=== PATIENT | male | born 1940 | race Caucasian/White ===

== ENCOUNTER 2019-02-13 20:23 | Inpatient (IN) | payer MEDICARE, OTHER ==
[~2019-02-13] VITALS: Ht 165.1 cm; Wt 78.5 kg
[~2019-02-13 20:23] MED LIST: ASPIRIN PO; PLAVIX PO
--- NOTE | 2019-02-13 20:55 | NUR ---
PT WAS SEATED ON THE [facility] ACC BY DAUGHTER CALM NAD AND COMPLIANT ABLE TO SPEAK COMPLETE AND CLEAR SENTENCES IN [place] DENIES EMESIS, +LWFEVER AT 99.4F DENIES RECENT TRAVELS DENIES DIARRHEA ABLE TO TOLERATE IVF INSERTION TO L AC G18
[2019-02-13 21:14] LABS: BASOPHILS % (AUTO) 0.4 % (0.0-2.0); EOSINOPHILS # (AUTO) 0.1 K/uL (0.0-0.7); EOSINOPHILS % (AUTO) 1.3 % (0.0-7.0); HEMATOCRIT 43.4 % (36.7-47.1); HEMOGLOBIN 14.9 g/dL (12.5-16.3); LYMPHOCYTES # (AUTO) 1.3 K/uL (20.0-40.0); LYMPHOCYTES % (AUTO) 16.2 % (20.5-51.5); MEAN CORPUSCULAR HEMOGLOBIN 29.4 uug (23.8-33.4); MEAN CORPUSCULAR HGB CONC 34 g/dL (32.5-36.3); MEAN CORPUSCULAR VOLUME 85.8 fL (73.0-96.2); MONOCYTES # (AUTO) 0.7 K/uL (2.0-10.0); NEUTROPHILS # (AUTO) 6.1 K/uL (1.8-8.9); NEUTROPHILS % (AUTO) 74.1 % (38.5-71.5); PLATELET COUNT (AUTO) 193 K/uL (152-348); RED BLOOD CELL COUNT(AUTO) 5.06 MIL/uL (4.06-5.63); WHITE BLOOD COUNT (AUTO) 8.2 K/uL (3.6-10.2)
[2019-02-13 21:17] LABS: BILIRUBIN,DIRECT 0.2 mg/dL (0.0-0.2); BILIRUBIN,TOTAL 0.7 mg/dL (0.2-1.0); POTASSIUM 3.7 mmol/L (3.5-5.1); TOTAL PROTEIN, SERUM 7.1 g/dL (6.4-8.2)
--- NOTE | 2019-02-13 21:17 | NUR ---
MD AT BEDSIDE FOR HX AND PHYSICAL
[2019-02-13] MEDS ORDERED: FENTANYL CITRATE 100 MCG/2 ML AMPUL IV ONE (21:30)
[2019-02-13] MEDS ORDERED: IV NS 1000 ML 1,000 ML IV ONE (21:30)
[2019-02-13] MEDS ORDERED: ONDANSETRON 4 MG/2 ML VIAL IV ONE (21:30)
--- NOTE | 2019-02-13 21:33 | NUR ---
[facility]
--- NOTE | 2019-02-13 21:59 | NUR ---
DR TREJO (GEN SURGERY) ON THE PHONE W/ ERMD DR HUSAIN
[2019-02-13] MEDS ORDERED: PIPERACILLIN SODIUM/TAZOBACTAM 4.5 G in IV DEXTROSE 5% 50 ML IV ONE (22:15)
[2019-02-13] MEDS ORDERED: PIPERACILLIN/TAZO 4.5 GM VIAL IV ONE (22:15)
[2019-02-13 22:16] LABS: *BILIRUBIN,URIN NEGATIVE (NEGATIVE); *BLOOD, URINE NEGATIVE (NEGATIVE); *CLARITY,URINE CLEAR (CLEAR); *COLOR,URINE YELLOW (YELLOW); *KETONES,URINE NEGATIVE (NEGATIVE); *UROBILINOGEN,URINE 0.2 E.U./dl (NORMAL); LEUKOCYTE ESTERASE ,URINE NEGATIVE (NEGATIVE); NITRITE, URINE NEGATIVE (NEGATIVE); PH,URINE 7.5 (5.0-8.0); UGLUCOSE NEGATIVE (NEGATIVE)
[2019-02-13] MEDS ORDERED: ROCURONIUM BROMIDE 50 MG/5 ML VIAL ONE (22:46)
[2019-02-13] MEDS ORDERED: SUCCINYLCHOLINE CHLORIDE 200 MG/10 ML VIAL ONE (22:46)
--- NOTE | 2019-02-13 22:47 | NUR ---
DR TREJO AT BEDSIDE FOR EXPLANATION OF SURGERY
[2019-02-13] MEDS ORDERED: BACITRACIN 50,000 UNITS VIAL ONE (22:49)
[2019-02-13] MEDS ORDERED: POLYMYXIN B SULFATE 500,000 UNITS VIAL ONE (22:49)
[2019-02-13] MEDS ORDERED: BUPIVACAINE/EPI PF 0.5% 10 ML VIAL ONE (22:50)
[2019-02-13] MEDS ORDERED: LIDOCAINE HCL 1% 20 ML VIAL ONE (22:50)
[2019-02-13] MEDS ORDERED: BUPIVACAINE/EPI PF 0.25% 30 ML VIAL ONE (22:51)
--- NOTE | 2019-02-13 23:13 | NUR ---
DR ALDANA ON THE PHONE W/ ERMCamelia HUSAIN PT WILL BE INPATIENT SURGERY UNDER DR NEIL ESCALONA PNEUMO PERITONEUM/ PERFORATED VISCUS/ ABD PAIN KATYA AT BED SIDE FOR HX AND PHYSICAL
--- NOTE | 2019-02-13 23:16 | NUR ---
PT PREOP CHECKLIST FINALIZED W/ OR NURSE HAND OFF AND SBAR GIVEN TO FRANNY LAST ORAL INTAKE WAS 02/13/19 AT 1800 PT HAS SENSITIVITY TO MORPHINE PER DAUGHTER(ENDORSED)
[2019-02-13] MEDS ORDERED: IV NS 1000 ML 1,000 ML IV PRN (23:20)
--- NOTE | 2019-02-13 23:20 | NUR ---
PT BROUGHT TO OR ACC BY TO OR RNS ALL BELONGINGS W/ PT BELONGINGS LIST SIGNED SIDERAILSX2 UP BED AT LOWEST POSITION
[2019-02-13] MEDS ORDERED: MORPHINE SULFATE 2 MG/1 ML DISP.SYRIN IV PRN (23:30)
[2019-02-13] MEDS ORDERED: Z GUARD REMEDY PASTE 57 GM TUBE TOP PRN (23:30)
[2019-02-13] MEDS ORDERED: ACETAMINOPHEN 325 MG TABLET PO PRN (23:30)
[2019-02-13] MEDS ORDERED: HYDROCODONE/APAP 5-325MG TABLET PO PRN (23:30)
[2019-02-13] MEDS ORDERED: MAGNESIUM HYDROXIDE 30 ML LIQUID UDC PO PRN (23:30)
[2019-02-14] VITALS (10 sets, daily range): BP systolic 113–166; BP diastolic 61–79
[2019-02-14] MEDS ORDERED: ONDANSETRON 4 MG/2 ML VIAL IV ONE (01:18)
[2019-02-14] MEDS ORDERED: NEOSTIGMINE METHYLSULFATE 10 MG/10 ML VIAL IM ONE (01:18)
[2019-02-14] MEDS ORDERED: IRR STERIL WATER FOR IRR 1000 ML BOTTLE IR ONE (01:18)
[2019-02-14] MEDS ORDERED: GLYCOPYRROLATE 0.2 MG/ML VIAL IJ ONE (01:18)
[2019-02-14] MEDS ORDERED: SUCCINYLCHOLINE CHLORIDE 200 MG/10 ML VIAL IV ONE (01:18)
[2019-02-14] MEDS ORDERED: PROPOFOL 200 MG/20 ML BOTTLE IV ONE (01:18)
[2019-02-14] MEDS ORDERED: IV LACTATED RINGERS SOLUTION 1,000 ML BAG IV ONE (01:18)
[2019-02-14] MEDS ORDERED: MEPERIDINE 25 MG/1 ML DISP.SYRIN ONE (01:22)
[2019-02-14] MEDS ORDERED: IV D5W-0.45% NS +20 KCL 1,000 ML IV ONE (01:46)
--- NOTE | 2019-02-14 02:13 | NUR ---
RECEIVED PT FROM SURGERY/PACU S/P EXPLORATORY LAPAROTOMY, SIGMOID COLON RESECTIO, COLOSTOMY & LYSIS OF ADHESION. DROWSY BUT AROUSABLE, SPEAKS FARSI UNDERSTAND LITTLE ENLISH. FAMILY AT BEDSIDE. ABD. DRSG INTACT & DRY. COLOSTOMY BAG ON R SIDE OF ABD. W/ SEROSANGINOUS DRAINAGE. IVF ON LEFT AC , PATENT. PLACED ON O2 @ 2LNC W/ O2 SAT OF 98%. DELANEY CATH IN PLACE W/ BLOOD TINGED URINE. C-SCOPE SR.
[2019-02-14] MEDS: ONDANSETRON 4 MG/2 ML VIAL IV PRN (02:36)
[2019-02-14] MEDS: HYDROMORPHONE 1 MG/1 ML DISP.SYRIN IV PRN ×9 (02:43→23:13)
[2019-02-14] MEDS ORDERED: METRONIDAZOLE 500 MG/NS 100ML 100 ML IV ONE (02:43)
--- NOTE | 2019-02-14 02:43 | NUR ---
MEDICATED W/ DILAUDID 0.5MG IVP FOR SURGICAL PAIN SCALE 10/10.
[2019-02-14] MEDS: METRONIDAZOLE 500 MG/NS 100ML 500 MG in PREMIXED 1 EACH IV SCH ×3 (02:58→19:49)
[2019-02-14] MEDS: POTASSIUM CHLORIDE 20 MEQ in IV D5 1/2 NS 1000 ML 1,000 ML IV PRN ×3 (03:46→23:09)
--- NOTE | 2019-02-14 04:00 | NUR ---
encouraged deep breathing & cough.
--- NOTE | 2019-02-14 05:19 | NUR ---
MEDICATED W/ DILAUDID 0,5MG IVP FOR SURGICAL PAIN SCALE 10/10. V/S STABLE.
[2019-02-14 05:29] LABS: BASOPHILS % (AUTO) 0.1 % (0.0-2.0); HEMATOCRIT 43.9 % (36.7-47.1); HEMOGLOBIN 14.7 g/dL (12.5-16.3); LYMPHOCYTES # (AUTO) 0.6 K/uL (20.0-40.0); MEAN CORPUSCULAR HEMOGLOBIN 29.8 uug (23.8-33.4); MEAN CORPUSCULAR HGB CONC 34 g/dL (32.5-36.3); MEAN CORPUSCULAR VOLUME 88.8 fL (73.0-96.2); MONOCYTES # (AUTO) 0.3 K/uL (2.0-10.0); MONOCYTES % (AUTO) 3.5 % (0.0-11.0); NEUTROPHILS # (AUTO) 8.4 K/uL (1.8-8.9); NEUTROPHILS % (AUTO) 90.4 % (38.5-71.5); PLATELET COUNT (AUTO) 169 K/uL (152-348); RED BLOOD CELL COUNT(AUTO) 4.94 MIL/uL (4.06-5.63); WHITE BLOOD COUNT (AUTO) 9.3 K/uL (3.6-10.2)
[2019-02-14 05:36] LABS: CARBON DIOXIDE 28 mmol/L (21-32); CHLORIDE 103 mmol/L (98-107); CHOLESTEROL 135 mg/dL (<200); CREATININE 1.4 mg/dL (0.6-1.3); GLUCOSE 136 mg/dL (74-106); HDL CHOLESTEROL 43 mg/dL (40-60); MAGNESIUM 1.8 mg/dL (1.8-2.4); PHOSPHOROUS 3.1 mg/dL (2.5-4.9); POTASSIUM 4.1 mmol/L (3.5-5.1); TRIGLYCERIDES 28 MG/DL (30-150); UREA NITROGEN, BLOOD 12 mg/dL (7-18)
--- NOTE | 2019-02-14 05:40 | NUR ---
REPOSITIONED PT ON HIS BACK W/ HOB ELEVATED.
[2019-02-14] MEDS ORDERED: PIPERACILLIN SODIUM/TAZOBACTAM 3.375 G in IV DEXTROSE 5% 50 ML IV SCH (06:00)
[2019-02-14] MEDS ORDERED: MORPHINE SULFATE 2 MG/1 ML DISP.SYRIN IV PRN (07:30)
[2019-02-14] MEDS ORDERED: CEFAZOLIN 1 G in IV DEXTROSE 5% 50 ML IV SCH ×2 (08:00→16:00)
[2019-02-14] MEDS: PANTOPRAZOLE SODIUM 40 MG VIAL IV SCH (08:01)
--- NOTE | 2019-02-14 10:08 | NUR ---
Dr. Robb at the bedside with family. Full report given. New orders received. Pt to advance to clear liquid diet and have physical therapy.
--- NOTE | 2019-02-14 11:57 | NUR ---
Physical therapy here to see pt for eval.
--- NOTE | 2019-02-14 13:20 | NUR ---
Dr. Alexander here to see pt. Full report given. New orders received. MD talavera to downgrade pt to telemetry status.
[2019-02-14] MEDS: CEFTRIAXONE 1 G in IV DEXTROSE 5% 50 ML IV SCH (15:51)
--- NOTE | 2019-02-14 19:15 | NUR ---
Transferred pt to room 320-T and full SBAR report given to band leader RN Traci at the bedside. Pt stable and nad noted upon leaving the unit. VSS wnl.
--- NOTE | 2019-02-14 19:30 | NUR ---
RECEIVED PATIENT FROM ICU VIA GURNEY. PATIENT ACCOMPANIED BY SON CHAS. PATIENT AAOX4. IN NO ACUTE DISTRESS. ON O2 AT 3LPM VIA NC IN PLACE. O2 SAT AT 94%. NSR ON TELE AT 85/MIN. IV SITE ON LEFT AC INTACT AND PATENT. IVF INFUSING. COLOSTOMY INTACT AND WITH SEROSANGUINEOUS DRAINAGE. DELANEY CATHETER INTACT AND DRAINING VIA GRAVITY. ENCOURAGE TO DO INCENTIVE SPIROMETER AND PATIENT VERBALIZED UNDERSTANDING. SAFETY MEASURE INITIATED AND CALL CABRERA WITHIN REACH.
[2019-02-14] MEDS: ENOXAPARIN SODIUM 40 MG/0.4 ML DISP.SYRIN SQ SCH (21:34)
[2019-02-15] VITALS: BP 117/59
[2019-02-15] MEDS: METRONIDAZOLE 500 MG/NS 100ML 500 MG in PREMIXED 1 EACH IV SCH ×3 (02:04→19:10)
[2019-02-15 05:25] VITALS: BP 127/62
[2019-02-15] MEDS: HYDROMORPHONE 1 MG/1 ML DISP.SYRIN IV PRN ×3 (06:13→17:02)
--- NOTE | 2019-02-15 06:20 | NUR ---
PATIENT AAOX4. IN NO ACUTE DISTRESS. O2 AT 3LPM VIA NC IN PLACE. O2 SAT AT 98%. NSR ON TELE AT 87/MIN. IV SITE ON LEFT AC INTACT AND PATENT. IVF INFUSING. NO ADVERSE REACTION NOTED FROM IV ABX. DILAUDID 0.5MG IV PRN GIVEN FOR COMPLAIN OF ABDOMINAL PAIN AND EFFECTIVE. COLOSTOMY INTACT AND PATENT. DELANEY CATHETER INTACT AND DRAINING VIA GRAVITY. SAFETY MEASURE MAINTAINED AND CALL CABRERA WITHIN REACH.
[2019-02-15 06:54] LABS: BASOPHILS % (AUTO) 0.1 % (0.0-2.0); EOSINOPHILS % (AUTO) 0.3 % (0.0-7.0); HEMATOCRIT 40.3 % (36.7-47.1); HEMOGLOBIN 13.7 g/dL (12.5-16.3); LYMPHOCYTES # (AUTO) 0.8 K/uL (20.0-40.0); LYMPHOCYTES % (AUTO) 9.8 % (20.5-51.5); MEAN CORPUSCULAR HEMOGLOBIN 30.1 uug (23.8-33.4); MEAN CORPUSCULAR HGB CONC 34 g/dL (32.5-36.3); MEAN CORPUSCULAR VOLUME 88.8 fL (73.0-96.2); MONOCYTES # (AUTO) 0.6 K/uL (2.0-10.0); MONOCYTES % (AUTO) 7.6 % (0.0-11.0); NEUTROPHILS # (AUTO) 6.4 K/uL (1.8-8.9); NEUTROPHILS % (AUTO) 82.2 % (38.5-71.5); PLATELET COUNT (AUTO) 158 K/uL (152-348); RED BLOOD CELL COUNT(AUTO) 4.53 MIL/uL (4.06-5.63); WHITE BLOOD COUNT (AUTO) 7.8 K/uL (3.6-10.2)
[2019-02-15 07:05] LABS: BILIRUBIN,TOTAL 0.8 mg/dL (0.2-1.0); CREATININE 1.2 mg/dL (0.6-1.3); MAGNESIUM 2.2 mg/dL (1.8-2.4); PHOSPHOROUS 2.2 mg/dL (2.5-4.9); POTASSIUM 4.2 mmol/L (3.5-5.1); TOTAL PROTEIN, SERUM 5.9 g/dL (6.4-8.2)
--- NOTE | 2019-02-15 07:28 | NUR ---
Awake, alert, oriented x 4, Farsi speaking, on moderate high back rest. IVF infusing. CXR done
[2019-02-15] MEDS: POTASSIUM CHLORIDE 20 MEQ in IV D5 1/2 NS 1000 ML 1,000 ML IV PRN ×2 (08:39→21:42)
[2019-02-15] MEDS: PANTOPRAZOLE SODIUM 40 MG VIAL IV SCH (08:40)
[2019-02-15] MEDS ORDERED: SODIUM PHOSPHATE MM 5 MM in IV DEXTROSE 5% 100 ML IV ONE (09:00)
[2019-02-15] MEDS ORDERED: ASPI-605 PO (09:22)
[2019-02-15] MEDS ORDERED: CLOP75TA15 PO (09:22)
--- NOTE | 2019-02-15 10:44 | NUR ---
Assisted out of bed by PT, ambulated in the hallway then sitting on the chair, tolerated. Assisted back to bed, repositioned comfortably. Daughter at bedside
[2019-02-15 11:52] VITALS: BP 143/72
[2019-02-15] MEDS: ONDANSETRON 4 MG/2 ML VIAL IV PRN ×3 (12:30→21:35)
--- NOTE | 2019-02-15 12:30 | NUR ---
with nausea and abdominal pain. PRN Dilaudid and Zofran IV given with relief
--- NOTE | 2019-02-15 15:00 | NUR ---
Assisted out of bed, sitting on the chair, daughter at bedside.
[2019-02-15 15:21] VITALS: BP 125/60
[2019-02-15] MEDS: CEFTRIAXONE 1 G in IV DEXTROSE 5% 50 ML IV SCH (15:29)
--- NOTE | 2019-02-15 17:05 | NUR ---
nauseated with abdominal pain. Zofran changed to Q4 hours PRN, given with Dilaudid with relief
--- NOTE | 2019-02-15 18:30 | NUR ---
Spoke with Dr. Robb, informed of patient's condition through out the shift. Reglan IV ordered
[2019-02-15] MEDS: METOCLOPRAMIDE HCL 10 MG/2 ML VIAL IV SCH (18:35)
--- NOTE | 2019-02-15 19:40 | NUR ---
PATIENT ALERT ORIENTED, NO SOB NO CHEST PAIN. PATIENT ON MONITOR NORMAL SINUS RHYTHM AT THIS TIME. PATIENT HAS NO COMPLAIN OF PAIN AT THIS TIME, PATIENT COLOSTOMY DRAINING WITH DARK COLOR BM THIN CONSISTENCY. PATIENT ENCOURAGE TO DO DEEP BREATHING, ENCOURAGE TO USE IC. ABLE TO FOLLOW TEACHING. PATIENT ON OXYGEN, OXYGEN SAT WNL, CONT TO MONITOR.
[2019-02-15 20:15] VITALS: BP 132/66
[2019-02-15] MEDS: ENOXAPARIN SODIUM 40 MG/0.4 ML DISP.SYRIN SQ SCH (21:37)
[2019-02-16 00:25] VITALS: BP 154/69
[2019-02-16] MEDS: HYDROMORPHONE 1 MG/1 ML DISP.SYRIN IV PRN (00:33)
[2019-02-16] MEDS: METOCLOPRAMIDE HCL 10 MG/2 ML VIAL IV SCH ×4 (00:33→17:33)
[2019-02-16] MEDS: METRONIDAZOLE 500 MG/NS 100ML 500 MG in PREMIXED 1 EACH IV SCH ×3 (02:00→17:34)
[2019-02-16 04:22] VITALS: BP 146/68
[2019-02-16] MEDS: POTASSIUM CHLORIDE 20 MEQ in IV D5 1/2 NS 1000 ML 1,000 ML IV PRN ×2 (05:19→14:29)
[2019-02-16 06:23] LABS: BASOPHILS % (AUTO) 0.2 % (0.0-2.0); EOSINOPHILS # (AUTO) 0.1 K/uL (0.0-0.7); EOSINOPHILS % (AUTO) 1.3 % (0.0-7.0); HEMATOCRIT 39.8 % (36.7-47.1); HEMOGLOBIN 13.8 g/dL (12.5-16.3); LYMPHOCYTES # (AUTO) 0.8 K/uL (20.0-40.0); LYMPHOCYTES % (AUTO) 10.2 % (20.5-51.5); MEAN CORPUSCULAR HEMOGLOBIN 30.4 uug (23.8-33.4); MEAN CORPUSCULAR HGB CONC 35 g/dL (32.5-36.3); MEAN CORPUSCULAR VOLUME 87.7 fL (73.0-96.2); MONOCYTES # (AUTO) 0.6 K/uL (2.0-10.0); MONOCYTES % (AUTO) 7.8 % (0.0-11.0); NEUTROPHILS # (AUTO) 6.6 K/uL (1.8-8.9); NEUTROPHILS % (AUTO) 80.5 % (38.5-71.5); PLATELET COUNT (AUTO) 186 K/uL (152-348); RED BLOOD CELL COUNT(AUTO) 4.54 MIL/uL (4.06-5.63); WHITE BLOOD COUNT (AUTO) 8.2 K/uL (3.6-10.2)
--- NOTE | 2019-02-16 06:26 | NUR ---
PATIENT ALERT ORIENTED, NO SOB NO CHEST PAIN. PATIENT TELE MONITOR SINUS RYTHM AT THIS TIME. PATIENT ABDOMEN DRESSING INTACT, COLOSTOMY DRAINING IN DARK COLOR SOFT FECES IN SMALL AMOUNT APPROX AMOUNT 150CC. PATIENT DELANEY CATH PATENT DRAINING WITH YELLOW COLOR URINE IN MODERATE AMOUNT. PATIENT CONT ON PAIN MANAGEMENT ABDOMINAL PAIN, PATIENT USES INCENTIVE SPIROMETER WHILE AWAKE, AND ALSO DO DEEP BREATHING. CONT TO MONITOR.
[2019-02-16 06:40] LABS: CREATININE 0.9 mg/dL (0.6-1.3); MAGNESIUM 2.1 mg/dL (1.8-2.4); PHOSPHOROUS 1.3 mg/dL (2.5-4.9); POTASSIUM 3.9 mmol/L (3.5-5.1)
--- NOTE | 2019-02-16 07:05 | NUR ---
RECEIVED PATIENT IN BED, AOX4. PATIENT DENIES CHEST PAIN OR SOB AT THIS TIME. RIGHT AC IV INTACT AND FLUSHING WELL. ON ON AIR TALENT SINUS RHYTHM WITH OCCASIONAL PAC'S. ABDOMINAL DRESSING INTACT. COLOSTOMY INTACT WITH DARK, SOFT FECES. SAFETY AND FALL PREVENTION IN PLACE. BED ALARM ON. CALL LIGHT IN REACH. BED IN LOW AND LOCKED POSITION. ALL NEEDS MET AT THIS TIME. WILL CONTINUE TO MONITOR.
[2019-02-16] MEDS: PANTOPRAZOLE SODIUM 40 MG VIAL IV SCH (08:18)
[2019-02-16] MEDS ORDERED: NEUTRA PHOS PACKET PO ONE (08:30)
[2019-02-16] MEDS ORDERED: CLOPIDOGREL 75 MG TABLET PO SCH (09:00)
[2019-02-16] MEDS ORDERED: ASPIRIN EC 81 MG TABLET.DR PO SCH (09:00)
--- NOTE | 2019-02-16 09:30 | NUR ---
NOTIFIED DR. CRAWFORD THAT NEUTRA PHOS 2 PACKS WAS ALREADY GIVEN. STATED THAT IT IS STILL OK TO GIVE IV SODIUM PHOS ORDERED.
[2019-02-16] MEDS ORDERED: SODIUM PHOSPHATE MM 7.5 MM in IV DEXTROSE 5% 100 ML IV ONE (11:00)
[2019-02-16 12:00] VITALS: BP 154/70
[2019-02-16 14:05] VITALS: BP 148/69
[2019-02-16] MEDS: CEFTRIAXONE 1 G in IV DEXTROSE 5% 50 ML IV SCH (16:05)
[2019-02-16] MEDS ORDERED: MAGN400O6 PO (18:00)
[2019-02-16] MEDS ORDERED: ONDA4VIA23 IV (18:00)
[2019-02-16] MEDS ORDERED: PANT40VI IV (18:00)
[2019-02-16] MEDS ORDERED: METO5VIA3 IV (18:00)
[2019-02-16] MEDS ORDERED: HYDR1DIS2 IV (18:00)
[2019-02-16] MEDS ORDERED: MENT71OI TOP (18:00)
[2019-02-16] MEDS ORDERED: ACID1TAB4 PO (18:00)
[2019-02-16] MEDS ORDERED: HYDR-3326 PO (18:00)
[2019-02-16] MEDS ORDERED: CEFT1VIA15 IV (18:00)
[2019-02-16] MEDS ORDERED: ACET325T53 PO (18:00)
[2019-02-16] MEDS ORDERED: METR500P3 IV (18:00)
--- NOTE | 2019-02-16 18:45 | NUR ---
PATIENT ABDOMINAL DRESSING INTACT AND PATIENT REFUSED TO HAVE PICTURE OF ABDOMINAL SURGICAL SITE TAKEN PRIOR TO DC.
--- NOTE | 2019-02-16 18:45 | NUR ---
PATIENT DISCHARGED TO ARU. DISCHARGED INSTRUCTIONS WENT OVER AND GIVEN TO PATIENT. REPORT GIVEN TO NURSE KARI RN. PATIENT DC IN STABLE CONDITION. VS STABLE.
[2019-02-16] MEDS: ONDANSETRON 4 MG/2 ML VIAL IV PRN (18:49)
== END 2019-02-16 19:50 | DRG 329 ==
LOC: ER 20:26 → MEDSURG3 23:20 → CCU 02-14 01:38 → TELE3 02-14 19:25
PROVIDERS: ADMIT Nurse Practitioner Acute Care; ATTEND Nurse Practitioner Acute Care
PROC: 0DTN0ZZ Resection of Sigmoid Colon, Open Approach (ICD-10-PCS; principal; 2019-02-14)
PROC: 0D1N0Z4 Bypass Sigmoid Colon to Cutaneous, Open Approach (ICD-10-PCS; 2019-02-14)
DX: K57.20 Diverticulitis of large intestine with perforation and abscess without bleeding (principal); E43 Unspecified severe protein-calorie malnutrition; G92 Toxic encephalopathy; N17.0 Acute kidney failure with tubular necrosis; D68.59 Other primary thrombophilia; J98.11 Atelectasis; I50.30 Unspecified diastolic (congestive) heart failure; I25.10 Atherosclerotic heart disease of native coronary artery without angina pectoris; Z95.5 Presence of coronary angioplasty implant and graft; Z83.3 Family history of diabetes mellitus; Z82.49 Family history of ischemic heart disease and other diseases of the circulatory system; Z82.3 Family history of stroke; Z68.28 Body mass index [BMI] 28.0-28.9, adult; Z85.46 Personal history of malignant neoplasm of prostate; Z90.79 Acquired absence of other genital organ(s); B96.20 Unspecified Escherichia coli [E. coli] as the cause of diseases classified elsewhere; Z74.09 Other reduced mobility; M41.9 Scoliosis, unspecified; R73.9 Hyperglycemia, unspecified; I11.0 Hypertensive heart disease with heart failure; I08.1 Rheumatic disorders of both mitral and tricuspid valves
CPT/HCPCS: 36415; 70030-TC; 71045; 83605; 83690; 83735; 84100; 84443; 85025; 85730; 86850; 86900; 86901; 87040; 87070; 87075; 87077; 93005; 93307; A4217; A4649; A4663; C9113; G0378; J0330; J0690; J0696; J1170; J1650; J2175; J2270; J2405; J2543; J2710; J2765; J3010; J3480; J3490; J7030; J7050; J7060; J7120

== ENCOUNTER 2019-02-16 18:37 | Inpatient (IN) | payer MEDICARE, OTHER ==
[~2019-02-16] VITALS: Ht 165.1 cm; Wt 78.5 kg
[~2019-02-16 18:37] MED LIST changes: +ACET325T53 PO; +ACID1TAB4 PO; +ASPI-605 PO; -ASPIRIN PO; +CEFT1VIA15 IV; +CLOP75TA15 PO; +HYDR-3326 PO; +HYDR1DIS2 IV; +MAGN400O6 PO; +MENT71OI TOP; +METO5VIA3 IV; +METR500P3 IV; +ONDA4VIA23 IV; +PANT40VI IV; -PLAVIX PO
[2019-02-16] MEDS ORDERED: HYDROMORPHONE 1 MG/1 ML DISP.SYRIN IV PRN (19:15)
[2019-02-16] MEDS ORDERED: ONDANSETRON 4 MG/2 ML VIAL IV PRN (19:15)
[2019-02-16] MEDS ORDERED: ACETAMINOPHEN 325 MG TABLET PO PRN (19:15)
[2019-02-16] MEDS ORDERED: Z GUARD REMEDY PASTE 57 GM TUBE TOP PRN (19:15)
[2019-02-16] MEDS ORDERED: MAGNESIUM HYDROXIDE 30 ML LIQUID UDC PO PRN (19:15)
[2019-02-16 19:53] VITALS: BP 150/70
[2019-02-16] MEDS: HYDROCODONE/APAP 5-325MG TABLET PO PRN (20:02)
[2019-02-16] MEDS: METRONIDAZOLE 500 MG/NS 100 ML PIGGYBACK IV SCH (21:30)
--- NOTE | 2019-02-16 22:30 | NUR ---
Pt arrived in the unit at 1905 via hospital bed accompanied by RN and HAT MARKER from 3rd floor. Family at bedside. On 3L O2 via NC, no acute distress noted. Pt has surgical site on the abdomen, steven noted in place, picture taken. Pt also has colostomy. Jimenez catheter was removed before admission, pt currently has hematuria. IV on right forearm, pt receiving Flagyl IV. C/o pain on abdomen 10/17, [place] PRN given as ordered. Pertinent assessment done. Pt on clear liquid diet. Pt oriented to room and equipment. Dr. Alexander and Dr. Cruz aware of admission. Dr. Alexander did med recon. MRSA swab sent to the lab. Safety measures maintained. Call light and personal items within reach. Will continue to monitor.
[2019-02-16] MEDS ORDERED: METOCLOPRAMIDE HCL 10 MG/2 ML VIAL ONE (23:13)
[2019-02-16] MEDS: METOCLOPRAMIDE HCL 10 MG/2 ML VIAL IV SCH (23:17)
[2019-02-17 04:46] VITALS: BP 150/62
[2019-02-17] MEDS: METOCLOPRAMIDE HCL 10 MG/2 ML VIAL IV SCH ×4 (05:50→23:00)
[2019-02-17] MEDS: METRONIDAZOLE 500 MG/NS 100 ML PIGGYBACK IV SCH (05:51)
[2019-02-17 08:00] VITALS: BP 155/64
[2019-02-17] MEDS: ACIDOPHILUS/BULGARICUS CHEW TAB PO SCH ×2 (09:05→16:39)
[2019-02-17] MEDS: ASPIRIN EC 81 MG TABLET.DR PO SCH (09:06)
[2019-02-17] MEDS: CLOPIDOGREL 75 MG TABLET PO SCH (09:06)
[2019-02-17] MEDS: PANTOPRAZOLE SODIUM 40 MG VIAL IV SCH (09:07)
[2019-02-17] MEDS: METRONIDAZOLE 500 MG/NS 100ML 500 MG in PREMIXED 1 EACH IV SCH ×2 (14:44→21:13)
[2019-02-17 14:58] LABS: BASOPHILS % (AUTO) 0.2 % (0.0-2.0); EOSINOPHILS # (AUTO) 0.2 K/uL (0.0-0.7); EOSINOPHILS % (AUTO) 2.4 % (0.0-7.0); HEMATOCRIT 39.1 % (36.7-47.1); HEMOGLOBIN 13.2 g/dL (12.5-16.3); LYMPHOCYTES # (AUTO) 0.9 K/uL (20.0-40.0); LYMPHOCYTES % (AUTO) 11.3 % (20.5-51.5); MEAN CORPUSCULAR HEMOGLOBIN 29.7 uug (23.8-33.4); MEAN CORPUSCULAR HGB CONC 34 g/dL (32.5-36.3); MEAN CORPUSCULAR VOLUME 87.7 fL (73.0-96.2); MONOCYTES # (AUTO) 0.6 K/uL (2.0-10.0); MONOCYTES % (AUTO) 7.6 % (0.0-11.0); NEUTROPHILS # (AUTO) 6.1 K/uL (1.8-8.9); NEUTROPHILS % (AUTO) 78.5 % (38.5-71.5); PLATELET COUNT (AUTO) 208 K/uL (152-348); RED BLOOD CELL COUNT(AUTO) 4.46 MIL/uL (4.06-5.63); WHITE BLOOD COUNT (AUTO) 7.7 K/uL (3.6-10.2)
[2019-02-17] MEDS: CEFTRIAXONE 1 G in IV DEXTROSE 5% 50 ML IV SCH (16:30)
[2019-02-17] MEDS: NYSTATIN SUSPENSION 5 ML LIQUID UDC PO SCH ×2 (16:36→21:10)
--- NOTE | 2019-02-17 21:27 | NUR ---
Received pt resting in bed. AAO x4. Farsi speaking, able to make needs known. On 3L O2 via NC, tolerating well. No acute distress noted. Denies pain/ discomfort. Due meds given as ordered. IV site patent and intact. Colostomy bag in place. Safety measures maintained. Call light and personal items within reach. Will continue to monitor.
[2019-02-17 21:38] VITALS: BP 150/72
[2019-02-18 05:19] VITALS: BP 137/80
[2019-02-18] MEDS: METOCLOPRAMIDE HCL 10 MG/2 ML VIAL IV SCH ×4 (05:50→23:06)
[2019-02-18] MEDS: METRONIDAZOLE 500 MG/NS 100ML 500 MG in PREMIXED 1 EACH IV SCH ×3 (05:53→21:01)
[2019-02-18 07:30] VITALS: BP 149/54
[2019-02-18 08:25] LABS: BASOPHILS % (AUTO) 0.2 % (0.0-2.0); EOSINOPHILS # (AUTO) 0.2 K/uL (0.0-0.7); EOSINOPHILS % (AUTO) 3.2 % (0.0-7.0); HEMATOCRIT 35.9 % (36.7-47.1); HEMOGLOBIN 12.2 g/dL (12.5-16.3); LYMPHOCYTES # (AUTO) 0.7 K/uL (20.0-40.0); LYMPHOCYTES % (AUTO) 10.5 % (20.5-51.5); MEAN CORPUSCULAR HEMOGLOBIN 29.6 uug (23.8-33.4); MEAN CORPUSCULAR HGB CONC 34 g/dL (32.5-36.3); MONOCYTES # (AUTO) 0.5 K/uL (2.0-10.0); MONOCYTES % (AUTO) 8.1 % (0.0-11.0); NEUTROPHILS # (AUTO) 5.1 K/uL (1.8-8.9); PLATELET COUNT (AUTO) 189 K/uL (152-348); RED BLOOD CELL COUNT(AUTO) 4.13 MIL/uL (4.06-5.63); WHITE BLOOD COUNT (AUTO) 6.5 K/uL (3.6-10.2)
[2019-02-18] MEDS: PANTOPRAZOLE SODIUM 40 MG VIAL IV SCH (09:58)
[2019-02-18] MEDS: CLOPIDOGREL 75 MG TABLET PO SCH (09:58)
[2019-02-18] MEDS: ASPIRIN EC 81 MG TABLET.DR PO SCH (09:58)
[2019-02-18] MEDS: NYSTATIN SUSPENSION 5 ML LIQUID UDC PO SCH ×4 (09:58→20:49)
[2019-02-18] MEDS: ACIDOPHILUS/BULGARICUS CHEW TAB PO SCH ×2 (09:58→17:14)
[2019-02-18] MEDS: HYDROCODONE/APAP 5-325MG TABLET PO PRN (12:58)
--- NOTE | 2019-02-18 14:43 | NUR ---
Clinical Courier note: Psychosocial assessment completed today.
[2019-02-18 16:00] VITALS: BP 147/54
[2019-02-18] MEDS: CEFTRIAXONE 1 G in IV DEXTROSE 5% 50 ML IV SCH (17:15)
--- NOTE | 2019-02-18 19:35 | NUR ---
Received patient in bed. AAO x4. Not in acute distress or SOB. Farsi speaking, but can communicate in Sami. Able to make needs known. On room air. No Complain of pain at this time. Colostomy bag in place, no inflammation was noted. IV line on his right wrist G 20, flushed, patent, no sign of inflammation. Physical assessment done. Fall prevention observed. Safety measures maintained. Bed in low and lock position, alarm on, side rails up x2 for safety. Call light and frequently used items within reach. Continue to monitor.
[2019-02-18 20:21] VITALS: BP 155/64
[2019-02-18] MEDS: TEMAZEPAM 15 MG CAPSULE PO SCH (20:49)
--- NOTE | 2019-02-19 04:36 | NUR ---
End of the shift note: Patient was stable during the shift and had a good sleep last night. Not in acute distress or SOB. On room air. All due medications including IV antibiotic given as ordered and well tolerated. All needs attended promptly. Physical assessment done. Fall prevention observed. Safety measures maintained. Bed in low and lock position, alarm on, side rails up x2 for safety. Call light and frequently used items within reach. Continue to monitor and will endorse to the day shift nurse accordingly.
[2019-02-19] MEDS: METOCLOPRAMIDE HCL 10 MG/2 ML VIAL IV SCH ×4 (05:09→23:42)
[2019-02-19] MEDS: METRONIDAZOLE 500 MG/NS 100ML 500 MG in PREMIXED 1 EACH IV SCH ×3 (05:15→21:27)
[2019-02-19 05:35] VITALS: BP 153/69
[2019-02-19 07:20] LABS: BASOPHILS % (AUTO) 0.2 % (0.0-2.0); EOSINOPHILS # (AUTO) 0.2 K/uL (0.0-0.7); EOSINOPHILS % (AUTO) 2.7 % (0.0-7.0); HEMATOCRIT 38.1 % (36.7-47.1); HEMOGLOBIN 12.9 g/dL (12.5-16.3); LYMPHOCYTES # (AUTO) 1.2 K/uL (20.0-40.0); LYMPHOCYTES % (AUTO) 13.7 % (20.5-51.5); MEAN CORPUSCULAR HEMOGLOBIN 29.5 uug (23.8-33.4); MEAN CORPUSCULAR HGB CONC 34 g/dL (32.5-36.3); MEAN CORPUSCULAR VOLUME 87.1 fL (73.0-96.2); MONOCYTES # (AUTO) 0.7 K/uL (2.0-10.0); MONOCYTES % (AUTO) 8.6 % (0.0-11.0); NEUTROPHILS # (AUTO) 6.4 K/uL (1.8-8.9); NEUTROPHILS % (AUTO) 74.8 % (38.5-71.5); PLATELET COUNT (AUTO) 221 K/uL (152-348); RED BLOOD CELL COUNT(AUTO) 4.37 MIL/uL (4.06-5.63); WHITE BLOOD COUNT (AUTO) 8.6 K/uL (3.6-10.2)
[2019-02-19 07:30] LABS: CREATININE 0.7 mg/dL (0.6-1.3); PHOSPHOROUS 2.4 mg/dL (2.5-4.9); POTASSIUM 3.4 mmol/L (3.5-5.1)
[2019-02-19] MEDS: ASPIRIN EC 81 MG TABLET.DR PO SCH (08:45)
[2019-02-19] MEDS: NYSTATIN SUSPENSION 5 ML LIQUID UDC PO SCH ×4 (08:45→21:00)
[2019-02-19] MEDS: ACIDOPHILUS/BULGARICUS CHEW TAB PO SCH ×2 (08:45→16:19)
[2019-02-19] MEDS: PANTOPRAZOLE SODIUM 40 MG VIAL IV SCH (08:45)
[2019-02-19] MEDS: CLOPIDOGREL 75 MG TABLET PO SCH (08:45)
--- NOTE | 2019-02-19 08:50 | NUR ---
Patient awake, alert, oriented x 4, not in any form of distress, on room air. He denies any pain or discomfort at this time. Due medications administered and tolerated well. Surgical wound dressing intact, clean and dry. Colostomy bag in place. Attended to his needs promptly. Call light and frequently used items placed within reach.
[2019-02-19 09:07] VITALS: BP 147/59
[2019-02-19 09:17] LABS: EOSINOPHILS % (MANUAL) 1 % (0-8); LYMPHOCYTES % (MANUAL) 9 % (20-40); MONOCYTES % (MANUAL) 11 % (2-10); NEUTROPHILS % (MANUAL) 79 % (42-75)
[2019-02-19] MEDS: HYDROCODONE/APAP 5-325MG TABLET PO PRN (09:35)
--- NOTE | 2019-02-19 13:54 | NUR ---
INDIVIDUALIZE OVERALL PLAN OF CARE
[2019-02-19] MEDS ORDERED: POTASSIUM CHLORIDE 20 MEQ TAB.PRT.SR PO ONE (14:15)
[2019-02-19] MEDS ORDERED: NEUTRA PHOS PACKET PO ONE (15:15)
[2019-02-19] MEDS: CEFTRIAXONE 1 G in IV DEXTROSE 5% 50 ML IV SCH (16:15)
[2019-02-19 16:20] VITALS: BP 159/66
--- NOTE | 2019-02-19 19:00 | NUR ---
Patient complained of swelling of bilateral lower extremities. Noted with +1 pitting edema BLE, informed Dr. George and gave no new order and advised patient to elevate legs. Patient made aware.
--- NOTE | 2019-02-19 19:40 | NUR ---
Received patient awake, alert and oriented x 4, Farsi speaking, sitting on the chair inside room. Sons at bedside. Denies any pain at this time. Not in distress. Elevated BLE in a chair to reduce edema. Safety measure and fall prevention maintained. Continue care as planned.
[2019-02-19 19:58] VITALS: BP 156/64
[2019-02-19] MEDS: TEMAZEPAM 15 MG CAPSULE PO SCH (21:00)
--- NOTE | 2019-02-19 21:00 | NUR ---
Patient refused all meds due for 2100 despite explaining the risk and benefits of it.
[2019-02-20 05:52] VITALS: BP 160/60
[2019-02-20] MEDS: METRONIDAZOLE 500 MG/NS 100ML 500 MG in PREMIXED 1 EACH IV SCH ×3 (05:53→21:12)
[2019-02-20] MEDS: METOCLOPRAMIDE HCL 10 MG/2 ML VIAL IV SCH ×4 (05:53→23:21)
--- NOTE | 2019-02-20 06:55 | NUR ---
Shift End Report: Vs stable. No complaint presented all night. Slept fairly. Patient reported that he's been in and out the BR to urinate. Wound care done on mid abdominal incision site, tolerated well. All needs attended and met. Continue current rehab plan of care.
[2019-02-20] MEDS: PANTOPRAZOLE SODIUM 40 MG VIAL IV SCH (08:17)
[2019-02-20] MEDS: ACIDOPHILUS/BULGARICUS CHEW TAB PO SCH ×2 (08:18→17:46)
[2019-02-20] MEDS: NYSTATIN SUSPENSION 5 ML LIQUID UDC PO SCH ×4 (08:18→21:00)
[2019-02-20] MEDS: ASPIRIN EC 81 MG TABLET.DR PO SCH (08:18)
[2019-02-20] MEDS: CLOPIDOGREL 75 MG TABLET PO SCH (08:18)
[2019-02-20 10:47] VITALS: BP 155/69
--- NOTE | 2019-02-20 12:38 | NUR ---
Patient seen and examined by MD George. Edema +2 noted lower extremities, denies urinating. MD aware. no new order. Encourage elevated leg above the chest if in bed or sitting in the chair. For CBC, BMP, MG, PHOS waqas AM. BM noted in colostomy bag MD Robb (surgeon) aware and notified regarding clear liquid diet for 1 week after surgery, . MD order change to regular diet. Continue therapy for ambulation and ADL activity. Continue pain management if needed. no complaint of pain/discomfort noted. will continue monitor
[2019-02-20] MEDS: CEFTRIAXONE 1 G in IV DEXTROSE 5% 50 ML IV SCH (16:06)
[2019-02-20 18:49] VITALS: BP 137/66
[2019-02-20 19:23] VITALS: BP 155/64
--- NOTE | 2019-02-20 19:40 | NUR ---
Awake during initial rounds. Denies any pain/discomforts at this time. Family at bedside. Safety measure and fall prevention maintained. Continue care as planned.
--- NOTE | 2019-02-20 19:50 | NUR ---
Seen ambulating with FWW in the hallways with Daughter at his side. No SOB/SOBOE presented during ambulation. Safety measure and fall prevention reminded. No complaint of pain presented at this time. Continue care as planned.
[2019-02-20] MEDS: TEMAZEPAM 15 MG CAPSULE PO SCH ×3 (20:52→21:02)
[2019-02-20 20:56] LABS: BILIRUBIN,TOTAL 0.4 mg/dL (0.2-1.0); CREATININE 0.7 mg/dL (0.6-1.3); POTASSIUM 3.8 mmol/L (3.5-5.1); TOTAL PROTEIN, SERUM 5.5 g/dL (6.4-8.2)
[2019-02-21] MEDS: METOCLOPRAMIDE HCL 10 MG/2 ML VIAL IV SCH ×4 (05:31→23:43)
[2019-02-21] MEDS: METRONIDAZOLE 500 MG/NS 100ML 500 MG in PREMIXED 1 EACH IV SCH ×2 (05:31→13:58)
[2019-02-21 07:07] LABS: BASOPHILS % (AUTO) 0.3 % (0.0-2.0); EOSINOPHILS # (AUTO) 0.1 K/uL (0.0-0.7); EOSINOPHILS % (AUTO) 2.2 % (0.0-7.0); HEMATOCRIT 35.9 % (36.7-47.1); HEMOGLOBIN 12.2 g/dL (12.5-16.3); LYMPHOCYTES # (AUTO) 0.8 K/uL (20.0-40.0); MEAN CORPUSCULAR HEMOGLOBIN 29.9 uug (23.8-33.4); MEAN CORPUSCULAR HGB CONC 34 g/dL (32.5-36.3); MEAN CORPUSCULAR VOLUME 88.4 fL (73.0-96.2); MONOCYTES # (AUTO) 0.5 K/uL (2.0-10.0); MONOCYTES % (AUTO) 8.5 % (0.0-11.0); NEUTROPHILS # (AUTO) 4.5 K/uL (1.8-8.9); PLATELET COUNT (AUTO) 216 K/uL (152-348); RED BLOOD CELL COUNT(AUTO) 4.07 MIL/uL (4.06-5.63)
--- NOTE | 2019-02-21 07:08 | NUR ---
Shift End Report: Vs stable. Slept good. No complaint presented all night. Still continue to refused 2100 medications. All needs attended and met. No significant event reported all night. Continue current rehab plan of care.
[2019-02-21 07:10] LABS: CREATININE 0.7 mg/dL (0.6-1.3); MAGNESIUM 1.8 mg/dL (1.8-2.4); PHOSPHOROUS 2.2 mg/dL (2.5-4.9); POTASSIUM 3.4 mmol/L (3.5-5.1)
[2019-02-21 07:32] VITALS: BP 153/59
[2019-02-21 08:30] VITALS: BP 135/57
[2019-02-21] MEDS: ASPIRIN EC 81 MG TABLET.DR PO SCH (08:56)
[2019-02-21] MEDS: CLOPIDOGREL 75 MG TABLET PO SCH (08:56)
[2019-02-21] MEDS: NYSTATIN SUSPENSION 5 ML LIQUID UDC PO SCH ×5 (08:56→21:00)
[2019-02-21] MEDS: ACIDOPHILUS/BULGARICUS CHEW TAB PO SCH ×2 (08:56→16:54)
[2019-02-21] MEDS: PANTOPRAZOLE SODIUM 40 MG VIAL IV SCH (08:58)
[2019-02-21] MEDS ORDERED: POTASSIUM CHLORIDE 20 MEQ TAB.PRT.SR PO ONE (09:00)
[2019-02-21] MEDS ORDERED: NEUTRA PHOS PACKET PO ONE (15:15)
[2019-02-21] MEDS: CEFTRIAXONE 1 G in IV DEXTROSE 5% 50 ML IV SCH (16:16)
[2019-02-21] MEDS ORDERED: FUROSEMIDE 40 MG/4 ML VIAL IV ONE (16:30)
[2019-02-21] MEDS ORDERED: FUROSEMIDE 20 MG/2 ML VIAL IV ONE (16:45)
--- NOTE | 2019-02-21 19:00 | NUR ---
Patient remained alert, not in any distress with no complain of any discomfort during the shift. Patient noted with pitting edema on bilateral feet(+)3, informed Dr. George with order to give 1x dose of IVP lasix 20mg. Endorsed accordingly to evening or night nurse supervisor nurse.
--- NOTE | 2019-02-21 19:40 | NUR ---
Awake, daughters at bedside, denied any pain/discomforts at this time. Safety measure and fall prevention maintained. Continue care as planned.
[2019-02-21 20:30] VITALS: BP 123/53
[2019-02-21] MEDS: TEMAZEPAM 15 MG CAPSULE PO SCH (21:00)
[2019-02-22] MEDS: METOCLOPRAMIDE HCL 10 MG/2 ML VIAL IV SCH ×4 (05:32→23:50)
--- NOTE | 2019-02-22 05:44 | NUR ---
Shift End Report: Slept good. No complaint presented all night. Continue to refused 2100 due medications. Ambulating to the bathroom independently. No fall/injuries reported. All needs attended and met. Continue current rehab plan of care.
[2019-02-22 06:10] VITALS: BP 158/61
[2019-02-22] MEDS: PANTOPRAZOLE SODIUM 40 MG TABLET.DR PO SCH (06:21)
--- NOTE | 2019-02-22 06:53 | NUR ---
FBS 62 mg/dl. Patient denies any s/s of hypoglycemia. Douglas juice give. Will monitor. Endorse to Am nurse,.
[2019-02-22 08:00] VITALS: BP 113/62
[2019-02-22] MEDS: ACIDOPHILUS/BULGARICUS CHEW TAB PO SCH ×2 (08:46→17:10)
[2019-02-22] MEDS: CLOPIDOGREL 75 MG TABLET PO SCH (08:46)
[2019-02-22] MEDS: NYSTATIN SUSPENSION 5 ML LIQUID UDC PO SCH ×4 (08:46→21:25)
[2019-02-22] MEDS: ASPIRIN EC 81 MG TABLET.DR PO SCH (08:46)
--- NOTE | 2019-02-22 15:58 | NUR ---
INTERDISCIPLINARY TEAM CONFERENCE
[2019-02-22 16:32] VITALS: BP 134/68
--- NOTE | 2019-02-22 19:00 | NUR ---
No significant change noted during the shift. Patient remains alert, oriented x 4 not in any distress. Patient denies any pain discomfort. Patient participated with therapy and tolerated well. Emptied colostomy bag. Needs attended to promptly. Call light and frequently used items placed within reach. Endorsed accordingly to gastroenterology nurse practitioner nurse.
--- NOTE | 2019-02-22 19:39 | NUR ---
Patient received in bed with family at bedside. Alert and oriented x 4. Farsi speaking. Colostomy bag intact and patent. Nurse empty bag upon patient request. IV intact and patient on right FA. Large abdominal scar healing on patient abdomen. No C/O pain or SOB at this time. Call light and frequently used items within reach. Side rail up bilaterally. Will continue to monitor.
[2019-02-22] MEDS: TEMAZEPAM 15 MG CAPSULE PO SCH (21:00)
[2019-02-22 22:42] VITALS: BP 153/50
[2019-02-23 05:27] VITALS: BP 148/53
[2019-02-23] MEDS: METOCLOPRAMIDE HCL 10 MG/2 ML VIAL IV SCH ×3 (05:44→17:40)
[2019-02-23] MEDS: PANTOPRAZOLE SODIUM 40 MG TABLET.DR PO SCH (06:34)
[2019-02-23 07:30] VITALS: BP 141/57
[2019-02-23] MEDS: CLOPIDOGREL 75 MG TABLET PO SCH (08:18)
[2019-02-23] MEDS: ASPIRIN EC 81 MG TABLET.DR PO SCH (08:18)
[2019-02-23] MEDS: NYSTATIN SUSPENSION 5 ML LIQUID UDC PO SCH ×4 (08:18→20:39)
[2019-02-23] MEDS: ACIDOPHILUS/BULGARICUS CHEW TAB PO SCH ×2 (08:18→17:39)
--- NOTE | 2019-02-23 09:41 | NUR ---
Patient noted resting in bed, took all AM medications, no complaints of pain noted at this time, no signs of distress noted, call light in reach, bed locked and in lowest position, bilateral edema noted to both lower extremities, patient legs raised in bed at this time, all needs met at this time
[2019-02-23] MEDS ORDERED: FUROSEMIDE 20 MG TABLET PO ONE (13:00)
[2019-02-23 16:31] VITALS: BP 134/58
--- NOTE | 2019-02-23 18:05 | NUR ---
Increased pitting edema noted in lower extremities bilaterally, MD George notified with new orders for compression stockings and Lasix 20mg PO once now and lasix 20 mg PO daily for 7 days, colostomy emptied once this shift
--- NOTE | 2019-02-23 19:36 | NUR ---
Patient received in bed with family at bedside. Alert and oriented x 4. Farsi speaking. Colostomy bag intact and patent. IV intact and patient on right FA. Large incision healing on patient abdomen. No C/O pain or SOB at this time. Call light and frequently used items within reach. Side rail up bilaterally. Will continue to monitor.
[2019-02-23 20:32] VITALS: BP 128/52
[2019-02-23] MEDS: TEMAZEPAM 15 MG CAPSULE PO SCH (20:40)
[2019-02-24] MEDS: METOCLOPRAMIDE HCL 10 MG/2 ML VIAL IV SCH ×5 (00:17→23:39)
[2019-02-24 05:00] VITALS: BP 131/59
[2019-02-24] MEDS: PANTOPRAZOLE SODIUM 40 MG TABLET.DR PO SCH (06:08)
[2019-02-24 07:30] VITALS: BP 118/51
[2019-02-24] MEDS: CLOPIDOGREL 75 MG TABLET PO SCH (09:17)
[2019-02-24] MEDS: ACIDOPHILUS/BULGARICUS CHEW TAB PO SCH ×2 (09:17→17:54)
[2019-02-24] MEDS: ASPIRIN EC 81 MG TABLET.DR PO SCH (09:17)
[2019-02-24] MEDS: FUROSEMIDE 20 MG TABLET PO SCH (09:17)
[2019-02-24] MEDS: NYSTATIN SUSPENSION 5 ML LIQUID UDC PO SCH ×4 (09:17→21:00)
--- NOTE | 2019-02-24 10:00 | NUR ---
Patient noted resting in bed, took all AM medications, colostomy emptied, patient denies pain at this time, no signs of distress noted, call light in reach, bed locked and in lowest position, all needs met at this time
[2019-02-24 16:00] VITALS: BP 120/50
--- NOTE | 2019-02-24 19:45 | NUR ---
Awake, sitting on a chair inside room his room. Daughter at bedside. Denies any pain/discomforts at this time. Safety measures and fall prevention maintained. Continue care as planned.
[2019-02-24] MEDS: TEMAZEPAM 15 MG CAPSULE PO SCH (21:00)
[2019-02-24 22:00] VITALS: BP 122/58
[2019-02-25 04:30] VITALS: BP 145/59
[2019-02-25] MEDS: PANTOPRAZOLE SODIUM 40 MG TABLET.DR PO SCH (06:10)
[2019-02-25] MEDS: METOCLOPRAMIDE HCL 10 MG/2 ML VIAL IV SCH (06:10)
--- NOTE | 2019-02-25 07:01 | NUR ---
Shift End Report: Slept good. VS stable. No complaint presented all night. All needs attended and met. No significant event reported. No significant event reported all night. Continue current rehab plan of care.
[2019-02-25 07:54] VITALS: BP 121/59
[2019-02-25] MEDS: NYSTATIN SUSPENSION 5 ML LIQUID UDC PO SCH (08:28)
[2019-02-25] MEDS: ACIDOPHILUS/BULGARICUS CHEW TAB PO SCH ×2 (08:28→18:23)
[2019-02-25] MEDS: CLOPIDOGREL 75 MG TABLET PO SCH (08:28)
[2019-02-25] MEDS: FUROSEMIDE 20 MG TABLET PO SCH (08:28)
[2019-02-25] MEDS: ASPIRIN EC 81 MG TABLET.DR PO SCH (08:28)
[2019-02-25] MEDS ORDERED: ONDANSETRON HCL 4 MG TABLET PO PRN (10:15)
[2019-02-25] MEDS: METOCLOPRAMIDE HCL 10 MG TABLET PO SCH ×3 (13:32→20:48)
[2019-02-25 16:00] VITALS: BP 135/57
--- NOTE | 2019-02-25 18:26 | NUR ---
PATIENT IS ALERT, ORIENTED X3, NO SOB, RESP EVEN NONLABORED,COLOSTOMY INTACT, ASSISTED WITH MANAGING THE COLOSTOMY, SOFT STOOL, AMBULATORY WITH FWW, EDUCATED ON COLOSTOMY CARE, PATIENT VERBALIZED UNDERSTANDING OF IT. ASSISTED WITH SHOWER ACCORDING TO PATIENT PREFERENCES.DRESSING INTACT TO THE MID ABDOMEN INCISION SITE, DRY AND CLEAN, NO SIGNS AND SYMPTOMS OF INFECTION NOTED, REE ARE STILL INTACT. TRIED CALLED DR TREJO FOR FOLLOW UP RECOMMENDATION FOR REE, UNABLE TO REACH, CRIME SCENE EXAMINER IS AWARE.
--- NOTE | 2019-02-25 19:40 | NUR ---
Seen ambulating in the hallways during the start of the shift. No SOB/SOBOE presented. Denies any pain/discomforts. Family at bedside. Continue care as planned.
[2019-02-25 19:54] VITALS: BP 143/60
[2019-02-25] MEDS: TEMAZEPAM 15 MG CAPSULE PO SCH (20:52)
--- NOTE | 2019-02-25 21:50 | NUR ---
Emptied colostomy with assist with brown pasty large amount of stools today.
--- NOTE | 2019-02-26 05:30 | NUR ---
Shift End Report: Vs stable. Slept well. Ambulating with FWW in the hallways with no SOB. No complaint presented all night. All needs attended and met. No significant event reported all night. Continue current rehab plan of care.
[2019-02-26 06:04] VITALS: BP 135/63
[2019-02-26] MEDS: PANTOPRAZOLE SODIUM 40 MG TABLET.DR PO SCH (06:05)
[2019-02-26] MEDS: METOCLOPRAMIDE HCL 10 MG TABLET PO SCH ×4 (06:05→20:32)
[2019-02-26 07:45] VITALS: BP 150/56
[2019-02-26] MEDS: ASPIRIN EC 81 MG TABLET.DR PO SCH (08:32)
[2019-02-26] MEDS: CLOPIDOGREL 75 MG TABLET PO SCH (08:33)
[2019-02-26] MEDS: FUROSEMIDE 20 MG TABLET PO SCH (08:33)
[2019-02-26] MEDS: ACIDOPHILUS/BULGARICUS CHEW TAB PO SCH ×2 (08:33→17:00)
--- NOTE | 2019-02-26 09:00 | NUR ---
Patient awake, alert, sitting on the chair, no complain of any pain or discomfort, not in distress. Due medications administered and tolerated well. Attended to his needs promptly. Surgical wound dressing on the abdomen intact and dry. Colostomy bag intact with soft BM output. Call light and frequently used items placed within reach.
[2019-02-26 15:07] VITALS: BP 113/48
--- NOTE | 2019-02-26 19:40 | NUR ---
Seen ambulating with FWW in the hallways in slow but steady gait. No SOB/SOBOE noted. Continue to monitor.
--- NOTE | 2019-02-26 19:50 | NUR ---
Patient requested supplies needed to empty his colostomy bag. Patient very independent in performing colostomy care. Supervision and minimal assist was rendered
[2019-02-26 20:06] VITALS: BP 116/57
[2019-02-26] MEDS: TEMAZEPAM 15 MG CAPSULE PO SCH (20:33)
--- NOTE | 2019-02-26 20:39 | NUR ---
Peripheral line dc'd as ordered. No active bleeding noted. Patient tolerated procedure well.
[2019-02-27 05:25] VITALS: BP 131/61
[2019-02-27] MEDS: PANTOPRAZOLE SODIUM 40 MG TABLET.DR PO SCH (06:06)
[2019-02-27] MEDS: METOCLOPRAMIDE HCL 10 MG TABLET PO SCH ×4 (06:06→20:36)
--- NOTE | 2019-02-27 06:57 | NUR ---
Shift End Report: Vs stable.. No complaint presented all night. Ambulatory with FWW. No fall/injury reported. No significant event reported all night. Continue current rehab plan of care.
[2019-02-27 08:00] VITALS: BP 135/56
[2019-02-27] MEDS: CLOPIDOGREL 75 MG TABLET PO SCH (08:43)
[2019-02-27] MEDS: FUROSEMIDE 20 MG TABLET PO SCH (08:43)
[2019-02-27] MEDS: ACIDOPHILUS/BULGARICUS CHEW TAB PO SCH ×2 (08:43→17:07)
[2019-02-27] MEDS: ASPIRIN EC 81 MG TABLET.DR PO SCH (08:43)
--- NOTE | 2019-02-27 16:16 | NUR ---
Patient remains alert, oriented x 4 not in any distress, on room air. No significant event noted during the shift. No complain of any pain or discomfort. Assisted with his needs promptly. Patient participated with PT/OT and tolerated well. Surgical wound dressing changed with no noted signs of infection. Colostomy bag changed. Call light and frequently used items placed within reach.
[2019-02-27 17:12] VITALS: BP 141/64
--- NOTE | 2019-02-27 19:39 | NUR ---
Received patient while walking around using walker. AAO x4. Not in acute distress or SOB. Farsi speaking, but can communicate in German. Able to make needs known. On room air. No Complain of pain at this time. Colostomy bag in place, no inflammation was noted. Physical assessment done. Fall prevention observed. Safety measures maintained. Bed in low and lock position, alarm on, side rails up x2 for safety. Call light and frequently used items within reach. Continue to monitor.
[2019-02-27] MEDS: TEMAZEPAM 15 MG CAPSULE PO SCH (20:37)
[2019-02-27 21:37] VITALS: BP 140/55
[2019-02-28 05:03] VITALS: BP 146/59
--- NOTE | 2019-02-28 05:04 | NUR ---
End of the shift note: Patient was stable during the shift and had a good sleep last night. Not in acute distress or SOB. On room air. Refused to take sleeping pill (Restoril 15 mg cap). Walking with walker around the hallway multiple times during the shift. colostomy bag in place (left side of the abdomen). All due medications given as ordered and well tolerated. All needs attended promptly. Physical assessment done. Fall prevention observed. Safety measures maintained. Bed in low and lock position, alarm on, side rails up x2 for safety. Call light and frequently used items within reach. Continue to monitor and will endorse to the day shift nurse accordingly.
[2019-02-28] MEDS: PANTOPRAZOLE SODIUM 40 MG TABLET.DR PO SCH (06:15)
[2019-02-28] MEDS: METOCLOPRAMIDE HCL 10 MG TABLET PO SCH ×2 (06:42→12:13)
--- NOTE | 2019-02-28 07:21 | NUR ---
PATIENT IS UP, AMBULATING WITH FWW INDEPENDENTLY, NO DISTRESS NOTED
[2019-02-28 08:00] VITALS: BP 124/68
[2019-02-28] MEDS: ASPIRIN EC 81 MG TABLET.DR PO SCH (08:16)
[2019-02-28] MEDS: ACIDOPHILUS/BULGARICUS CHEW TAB PO SCH (08:16)
[2019-02-28] MEDS: FUROSEMIDE 20 MG TABLET PO SCH (08:16)
[2019-02-28] MEDS: CLOPIDOGREL 75 MG TABLET PO SCH (08:16)
--- NOTE | 2019-02-28 13:25 | NUR ---
PATIENT IS BEING DISCHARGED HOME,GOING TO [facility] WITH DR TREJO, DAUGHTER IS PRESENT BEDSIDE, DISCHARGE INSTRUCTION ARE GIVEN TO PATIENT, DAUGHTER TRANSLATED, PATIENT FEELS VERY CONFIDENT TAKING CARE OF COLOSTOMY, PATIENT PERFORMED COLOSTOMY CARE HIMSELF WITH NURSE. EDUCATION MATERIAL PROVIDED ABOUT INCISION CARE, COLOSTOMY CARE, HAND WASHING, INSTRUCTED PATIENT THAT STOMA NEED TO LOOK RED IN COLOR, BLUE OR PURPLE COLOR OF STOMA ARE NOT NORMAL, IF THAT OCCURS, SEEK MEDICAL CARE IMMEDIATELY. PATIENT VERBALIZED UNDERSTANDING OF IT.INSTRUCTED THE PATIENT ABOUT GOOD HAND WASHING, SIGNS AND SYMPTOMS OF INFECTION TO INCISION SITE. SUCH DRAINAGE OR REDNESS, PAIN, CALL MD. PATIENT VERBALIZED THE UNDERSTANDING OF IT. BELONGINGS ARE ACCOUNTED AND SIGNED. IV AND ID BAND REMOVED.
--- NOTE | 2019-02-28 14:24 | NUR ---
PATIENT DISCHARGED HOME WITH AMBULANCE, STABLE CONDITION, NO SKIN ISSUES NOTED EXCEPT ABDOMINAL INCISION SITE AND LEFT LOWER ABDOMEN COLOSTOMY, PATIENT IS ALERT, ORIENTED X4, NO DISTRESS NOTED. VITALS ARE WNL, BP 125/70,PULSE 70, RESP 18, TEMP 98.0,PAIN 0/10
--- NOTE | 2019-02-28 14:27 | NUR ---
INCISION SITE IS CLEAN AND DRY, NO DISCHARGE NOTED, NO REDNESS NOTED, COLOSTOMY STOMA IS RED IN COLOR, SEEMS VERY HEALTHY.
== END 2019-02-28 14:29 | disposition home health service (06) | DRG 949 ==
PROVIDERS: ADMIT Physical Medicine & Rehabilitation Pain Medicine; ATTEND Physical Medicine & Rehabilitation Pain Medicine
DX: Z48.815 Encounter for surgical aftercare following surgery on the digestive system (principal); G92 Toxic encephalopathy; N17.0 Acute kidney failure with tubular necrosis; E43 Unspecified severe protein-calorie malnutrition; K57.20 Diverticulitis of large intestine with perforation and abscess without bleeding; B37.0 Candidal stomatitis; D68.59 Other primary thrombophilia; R53.81 Other malaise; I87.2 Venous insufficiency (chronic) (peripheral); M41.86 Other forms of scoliosis, lumbar region; Z93.3 Colostomy status; Z68.28 Body mass index [BMI] 28.0-28.9, adult; E66.9 Obesity, unspecified; I08.1 Rheumatic disorders of both mitral and tricuspid valves; R11.2 Nausea with vomiting, unspecified; B96.20 Unspecified Escherichia coli [E. coli] as the cause of diseases classified elsewhere; I25.10 Atherosclerotic heart disease of native coronary artery without angina pectoris; Z85.46 Personal history of malignant neoplasm of prostate; Z90.79 Acquired absence of other genital organ(s); Z95.5 Presence of coronary angioplasty implant and graft; Z88.5 Allergy status to narcotic agent
CPT/HCPCS: 36415; 70030-TC; 83735; 84100; 85025; A4663; C9113; J0696; J1940; J2765; J3490; J7040; J7050; J7060; J8597

== ENCOUNTER 2020-06-07 17:54 | Emergency (ER) | payer MEDICARE, OTHER ==
[~2020-06-07] VITALS: Ht 165.1 cm; Wt 68.0 kg
[~2020-06-07 17:54] MED LIST changes: +AMIT25TA9 PO; +ATOR10TA PO; +BRIN8DRO OP; +CLON0.5T4 PO; +DICL50TA9 PO
--- NOTE | 2020-06-07 18:44 | NUR ---
PT IS IN ROOM #4B. DR VO EVALUATED THE PT. PT DOES NOT REMEMBER WHAT CHANGES WERE MADE TO HIS HOME MEDICATION. HIS RELATIVE ARE GOING TO BRING HIS HOME MEDICINE LIST LATER.
[2020-06-07] MEDS ORDERED: ONDANSETRON 4 MG/2 ML VIAL IV ONE (18:45)
[2020-06-07] MEDS ORDERED: IV NORMAL SALINE 1000 ML BAG IV ONE (18:45)
--- NOTE | 2020-06-07 19:02 | NUR ---
Patient was seen by . Placed on a monintor. 12 lead EKG done. IV placed, labs drawn. Hand off report given to Amanuel ALEJO
--- NOTE | 2020-06-07 19:03 | NUR ---
certified cytotechnologist taking patient out for CT
[2020-06-07] MEDS ORDERED: ONDANSETRON 4 MG/2 ML VIAL ONE (19:09)
[2020-06-07 19:23] LABS: BASOPHILS % (AUTO) 0.3 % (0.0-2.0); EOSINOPHILS # (AUTO) 0.3 K/uL (0.0-0.7); EOSINOPHILS % (AUTO) 4.8 % (0.0-7.0); HEMATOCRIT 37.2 % (36.7-47.1); HEMOGLOBIN 12.5 g/dL (12.5-16.3); LYMPHOCYTES # (AUTO) 1.5 K/uL (20.0-40.0); LYMPHOCYTES % (AUTO) 26.6 % (20.5-51.5); MEAN CORPUSCULAR HEMOGLOBIN 27.6 uug (23.8-33.4); MEAN CORPUSCULAR HGB CONC 34 g/dL (32.5-36.3); MEAN CORPUSCULAR VOLUME 82.4 fL (73.0-96.2); MONOCYTES # (AUTO) 0.5 K/uL (2.0-10.0); MONOCYTES % (AUTO) 8.9 % (0.0-11.0); NEUTROPHILS # (AUTO) 3.5 K/uL (1.8-8.9); NEUTROPHILS % (AUTO) 59.4 % (38.5-71.5); PLATELET COUNT (AUTO) 224 K/uL (152-348); RED BLOOD CELL COUNT(AUTO) 4.52 MIL/uL (4.06-5.63); WHITE BLOOD COUNT (AUTO) 5.8 K/uL (3.6-10.2)
[2020-06-07 19:27] LABS: POTASSIUM 3.7 mmol/L (3.5-5.1)
[2020-06-07 19:39] LABS: BILIRUBIN,DIRECT 0.1 mg/dL (0.0-0.2); BILIRUBIN,TOTAL 0.2 mg/dL (0.2-1.0); TOTAL PROTEIN, SERUM 6.9 g/dL (6.4-8.2)
[2020-06-07 19:42] LABS: *BILIRUBIN,URIN NEGATIVE (NEGATIVE); *BLOOD, URINE NEGATIVE (NEGATIVE); *CLARITY,URINE CLEAR (CLEAR); *COLOR,URINE LIGHT YELLOW (YELLOW); *KETONES,URINE NEGATIVE (NEGATIVE); *UROBILINOGEN,URINE 0.2 E.U./dl (NORMAL); LEUKOCYTE ESTERASE ,URINE NEGATIVE (NEGATIVE); NITRITE, URINE NEGATIVE (NEGATIVE); PH,URINE 5.5 (5.0-8.0); UGLUCOSE NEGATIVE (NEGATIVE)
[2020-06-07 20:30] VITALS: BP 146/63
--- NOTE | 2020-06-07 20:30 | NUR ---
Patient discharged to home in stable condition. Written and verbal after care instructions given. Patient verbalizes understanding of instructions. Stressed follow up or return to ER for worsening s/s. Patient ambulates without difficulty, received radiology reports and labs, left with all belongings.
== END 2020-06-07 20:30 | disposition home or self-care (01) ==
LOC: ER 17:56
DX: R10.32 Left lower quadrant pain (principal); R11.2 Nausea with vomiting, unspecified; K40.20 Bilateral inguinal hernia, without obstruction or gangrene, not specified as recurrent; Z90.79 Acquired absence of other genital organ(s); I25.10 Atherosclerotic heart disease of native coronary artery without angina pectoris; Z95.5 Presence of coronary angioplasty implant and graft; Z88.5 Allergy status to narcotic agent; Z83.3 Family history of diabetes mellitus; Z82.3 Family history of stroke; Z79.899 Other long term (current) drug therapy; Z79.82 Long term (current) use of aspirin; Z79.02 Long term (current) use of antithrombotics/antiplatelets; I87.2 Venous insufficiency (chronic) (peripheral); Z20.822 Contact with and (suspected) exposure to COVID-19
CPT/HCPCS: 36415; 71045; 74176; 80048; 80076; 81003; 83690; 84484; 85025; 87426; 93005; 96361; 96374; 99285; J2405; U0003; 70030-TC; A4663; J7030